=== PATIENT | male | born 1930 | race African-American/Black ===

== ENCOUNTER 2019-04-06 23:23 | Emergency (ER) | payer OTHER ==
[2019-04-07 00:20] LABS: ALT (SGPT) 7 U/L (8-55); AST (SGOT) 23 U/L (5-34); Albumin 3.4 g/dL (3.4-4.8); Alkaline Phosphatase 67 U/L (40-150); Anion Gap 22 mmol/L (10-20); BUN (Urea Nitrogen) 30 mg/dL (8.4-25.7); Bilirubin, Total 0.5 mg/dL (0.2-1.2); CK (CPK) 92 U/L (30-200); Calc. Creatinine Clearance 0 mL/min (70-130); Calcium 9.5 mg/dL (7.8-10.44); Carbon Dioxide 26 mmol/L (23-31); Chloride 94 mmol/L (98-107); Estimated GFR-MDRD 11; Globulin 4.5 g/dL (2.4-3.5); Glucose 100 mg/dL (83-110); Potassium 3.6 mmol/L (3.5-5.1); Protein, Total 7.9 g/dL (5.8-8.1); Sodium 138 mmol/L (136-145)
[2019-04-07 00:22] LABS: Band 41 % (5-11); Hemoglobin 9.5 g/dL (14.0-18.0); Hypochromia SLIGHT = 6-15 cells (100X) (0-5/hpf); Lymphocytes 3 % (21-51); MDiff Complete? YES; Mean Corpuscular HGB CONC 30.1 g/dL (32.0-36.0); Mean Corpuscular Volume 99.5 fL (78.0-98.0); Mean Platelet Volume 7.8 fL (7.4-10.4); Monocytes 1 % (0-10); Neutrophil 55 % (42-75); Platelet Count 248 thou/uL (130-400); Platelet Morphology Comment Appears Adequate; RBC Distribution Width 13.8 % (11.5-14.5); Red Blood Cell (RBC) Count 3.18 mill/uL (4.70-6.10); Reflex for Review?? NO; White Blood Cell (WBC) Count 14.2 thou/uL (4.8-10.8)
[2019-04-07 00:42] LABS: CKMB 3.7 ng/mL (0-6.6)
[2019-04-07] MEDS ORDERED: Morphine 4 MG/ML VIAL ONE (01:24)
--- NOTE | 2019-04-08 13:50 | CT ---
PRELIMINARY REPORT/[facility]/EMERGENTY AFTER-HOURS PROCEDURE CT Abdomen and Pelvis Without Contrast EXAM DATE/TIME: 04/06/2019 11:59 PM CLINICAL HISTORY: 89 years old, male; Abdominal pain; Generalized; Patient HX: 89/m PT presents with complaint of nause a, vomiting, and abd pain for the past week. Recently had peritoneal dialysis catheter removed as he has switched to hemodialysis TECHNIQUE: Imaging protocol: Axial computed tomography images of the abdomen and pelvis without contrast. Coronal reformatted images were created and reviewed. COMPARISON: No relevant prior studies available. FINDINGS: Pleural space: Small left pleural effusion with associated posterior atelectasis. Mediastinum: Small-sized hiatal hernia. Fluid within the visualized distal esophagus, likely reflux a nd/or dysmotility. ABDOMEN: Liver: Normal. Gallbladder and bile ducts: Normal Pancreas: Normal. Spleen: Splenic calcifications, compatible with prior granulomatous disease. Adrenals: Normal. Kidneys and ureters: 4.7 x 2.4 cm simple left posterior renal cyst. Stomach and bowel: Colonic diverticulosis. Multiple loops of moderately dilated, gas and fluid filled proximal and mid small bowel, with apparent transition to normal caliber small bowel within the righ t mid abdomen, where there is swirling appearance of small bowel and mesentery. Appendix: No evidence of appendicitis. PELVIS: Bladder: Unremarkable as visualized. Reproductive: Unremarkable as visualized. ABDOMEN and PELVIS: Intraperitoneal space: Normal. No free air. No significant fluid collection. Bones/joints: Changes of prior sternotomy. Soft tissues: Small fat and fluid containing right inguinal hernia, without acute complications. Vasculature: Atherosclerotic calcification of the visualized thoracic aorta. Atherosclerotic disease of the abdominal aorta and iliac arteries. Phleboliths within the pelvis. Lymph nodes: Normal. No enlarged lymph nodes. IMPRESSION: 1. Small left pleural effusion with associated posterior atelectasis. 2. Fluid within the visualized distal esophagus, likely reflux and/or dysmotility. 3. Multiple loops of moderately dilated, gas and fluid filled proximal and mid small bowel, with appa rent transition to normal caliber small bowel within the right mid abdomen, where there is swirling a ppearance of small bowel and mesentery. Findings most compatible with small bowel obstruction, possibly secondary to internal hernia. Thank you for allowing us to participate in the care of your patient. Dictated and Authenticated by: Liban Madison MD 04/07/2019 12:23 AM Central Time ([place] & [place]) FINAL REPORT CT ABDOMEN AND PELVIS WITHOUT IV CONTRAST: Multiple axial tomograms obtained through the abdomen and pelvis without IV enhancement. FINDINGS: There is fluid-filled distention of the stomach. There are fluid-filled dilated loops of proximal an d mid small bowel. Distal small bowel loops are decompressed. There is a mesenteric swirling sign i dentified as noted on preliminary report. The colon and distal small bowel are decompressed. Divert iculosis of the visualized colon. Adrenal glands and kidneys unremarkable with an exophytic cyst projecting from the inferior left kidn ey. IMPRESSION: Evidence of high-grade small bowel obstruction. I am in agreement with the preliminary report. POS: OFF
== END 2019-04-07 01:59 | disposition left against medical advice (07) ==
LOC: ERS 23:23
DX: K56.609 Unspecified intestinal obstruction, unspecified as to partial versus complete obstruction (principal); E78.5 Hyperlipidemia, unspecified; I12.0 Hypertensive chronic kidney disease with stage 5 chronic kidney disease or end stage renal disease; N18.6 End stage renal disease; Z79.899 Other long term (current) drug therapy
CPT/HCPCS: 74176; 80053; 82550; 82553; 83880; 84484; 85025; 93005; 94760; 96374; J2270

== ENCOUNTER 2020-10-06 06:41 | Observation (INO) | payer MEDICARE, OTHER ==
--- NOTE | 2020-10-06 07:36 | RAD ---
Portable frontal chest radiograph: 10/06/2020 COMPARISON: None HISTORY: Chest pain FINDINGS: The cardiac silhouette is enlarged. Midline sternotomy wires and mediastinal clips are pres ent. There is atherosclerotic calcification of the aortic arch. No pneumothorax, lobar consolidation, or alveolar edema. There is increased linear density within the medial left lung base. IMPRESSION: Prominent cardiac silhouette. Postoperative changes as above. Streaky linear density in the medial left lung base which could represent infiltrate, scar, and/or vo lume loss.
[2020-10-06] MEDS ORDERED: Cefepime 2 GM VIAL ONE (08:07)
[2020-10-06 08:42] LABS: Hemoglobin 11.4 g/dL (14.0-18.0); Mean Corpuscular HGB CONC 31.9 g/dL (32.0-36.0); Mean Corpuscular Hemoglobin 29.9 pg (27.0-31.0); Mean Corpuscular Volume 93.9 fL (78.0-98.0); Mean Platelet Volume 9.3 fL (7.4-10.4); Platelet Count 125 thou/uL (130-400); RBC Distribution Width 16.4 % (11.5-14.5); White Blood Cell (WBC) Count 5.4 thou/uL (4.8-10.8)
[2020-10-06 08:58] LABS: ALT (SGPT) 14 U/L (8-55); AST (SGOT) 24 U/L (5-34); Albumin 3.6 g/dL (3.4-4.8); Alkaline Phosphatase 89 U/L (40-110); Anion Gap 24 mmol/L (10-20); BUN (Urea Nitrogen) 87 mg/dL (8.4-25.7); Bilirubin, Total 0.6 mg/dL (0.2-1.2); CK (CPK) 75 U/L (30-200); Calc. Creatinine Clearance 0 mL/min (70-130); Calcium 9.4 mg/dL (7.8-10.44); Carbon Dioxide 22 mmol/L (23-31); Chloride 99 mmol/L (98-107); Estimated GFR-MDRD 6; Globulin 4.9 g/dL (2.4-3.5); Glucose 123 mg/dL (83-110); Lipase 61 U/L (8-78); Potassium 3.8 mmol/L (3.5-5.1); Protein, Total 8.5 g/dL (5.8-8.1); Sodium 141 mmol/L (136-145)
[2020-10-06 09:06] LABS: Band 7 % (5-11); Burr Cells SLIGHT = 2-5 cells (100X) (0-1/hpf); Lymphocytes 11 % (21-51); MDiff Complete? YES; Monocytes 13 % (0-10); Neutrophil 68 % (42-75); Platelet Morphology Comment Appears Decreased; Polychromasia SLIGHT = 2-3 cells (100X) (0-2/hpf); Reactive Lymphocytes 1 % (0-10)
[2020-10-06] MEDS ORDERED: Vancomycin 1 GM/200 ML BAG ONE (09:17)
[2020-10-06 09:19] LABS: CKMB 3.5 ng/mL (0-6.6)
[2020-10-06] MEDS ORDERED: Levofloxacin 500 mg/D5W 100 ml Premix Bag ONE (10:42)
[2020-10-06 11:44] LABS: HBSAg Index 0.18 S/CO (0-0.99); Hep B Surf Ag Non-Reactive S/CO (NonReactive)
--- NOTE | 2020-10-06 11:56 | CON ---
DATE OF CONSULTATION: REASON FOR CONSULTATION: End-stage renal disease, for maintenance hemodialysis. HISTORY OF PRESENTING ILLNESS: This is an 89-year-old gentleman, who presented to the hospital for increasing shortness of breath and chest pain. The patient denies any nausea or vomiting. PAST MEDICAL HISTORY: Significant for end-stage renal disease, hypertension, anemia, secondary hyperparathyroidism, history of CABG, history of AV fistula, and history of tunneled dialysis catheter. SOCIAL HISTORY: No alcohol or drug use. FAMILY HISTORY: Negative for ESRD. ALLERGIES: REVIEWED. MEDICATIONS: Home medications, list hospital. Hospital medications, list reviewed. REVIEW OF SYSTEMS: 15-point review of systems was performed, negative except for positives noted above. HEENT: Eyes intact, no diplopia. Ears: No hearing loss or earache. Nose: No discharge or bleeding. Chest: No cough or phlegm. Abdomen: No nausea or vomiting. Genitourinary: No hematuria. No Mcdonald catheter. Musculoskeletal: No low back pain. No joint swelling or pain. Neurological: No syncope. No seizures. Skin: No complaints of rash or itching. Psychiatric: No depression. Constitutional: No weight loss or loss of appetite. PHYSICAL EXAMINATION: GENERAL: The patient is awake and alert. VITAL SIGNS: Afebrile, pulse 75, breathing 16, and blood pressure was 130/70. HEENT: Head normocephalic and atraumatic. Eyes intact, no ulcers. Nose intact, no ulcers. Ears intact, no ulcers. Neck: Supple. No JVD. Chest: Symmetrical and clear. Cardiovascular: Shows S1 and S2, no rub, no murmur. Gastrointestinal: Abdomen is soft, bowel sounds positive. Extremities: Show no edema or ulcers. Skin: Shows no rash or petechiae. Musculoskeletal: Shows no joint swelling or stiffness. Genitourinary: Shows no Mcdonald or CVA tenderness. Neurologic: Motor intact. Cranial nerves intact. LABORATORY DATA: Reviewed. ASSESSMENT: Stage 6 chronic kidney disease with volume overload. Plan dialysis. Hypertension, stable. Anemia, stable. Medication based on GFR appropriate. Job ID: [id number]
[2020-10-06] MEDS ORDERED: Nitroglycerin 2% Ointment 1 INCH/1 GM Packet ONE (13:04)
--- NOTE | 2020-10-06 13:40 | PDOC.HHP ---
Hospitalist HPI - History of Present Illness History of Present Illness: ADMISSION DATE: 10/06/2020 TIME OF ASSESSMENT: 1300 PRIMARY CARE PHYSICIAN: Out of town, city call CHIEF COMPLAINT: Chest pain HPI: The patient is a 89-year-old male past medical history significant for end- stage renal disease on dialysis and NSTEMI who presents to the ER today for left upper chest pain. The patient was at dialysis in [place] for his regularly scheduled dialysis which he receives Tuesday, Tuesday, and Tuesday when he began to complain of left upper chest pain and scapular pain. He states that this is happened in the past and he sees a mortgage protection specialist for this. His mortgage protection specialist is in [place] but he cannot remember his name at this time. Patient does appear to be a poor historian. Patient describes today's chest pain as a tightness on the left upper side and goes into his scapula. It is not reproducible and it has resolved at this time. While talking he does have an increased work of breathing but he attributes this to needing dialysis. He states he did receive his Tuesday dialysis. Patient denies any fever, chills, myalgias, abdominal discomfort, contact with sick persons. ED COURSE: Vital signs: Blood pressure 143/83, pulse 94, respiratory rate 21, 96% on 1 L, temp 97.6 Today in the ER they completed lab work, EKG and a chest x-ray. He was given cefepime 2 g IV, vancomycin 1 g IV, Levaquin 500 mg IV, and nitro 0.5 inches transdermal. PAST MEDICAL HISTORY: Hyperlipidemia, hypertension, please with Tuesday dialysis, CAD, atrial fibrillation PAST SURGICAL HISTORY: CABG 3, dialysis shunt to left upper extremity SOCIAL HISTORY: Patient lives at home alone and is independent with all activities. He still drives himself to his doctor's appointment in [place] from [place]. He previously drank alcohol but no longer does. He denies smoking and drug use and history. FAMILY HISTORY: Unknown at this time ALLERGIES: No known drug allergies CURRENT MEDICATIONS: As reconciled by the ER Atorvastatin 40 mg Carvedilol 25 mg twice a day Clonidine 0.2 mg every 12 hours for systolic over 180 Gabapentin 300 mg Iron Pantoprazole 40 mg Renvela 800 mg Amitriptyline 25 mg Cymbalta 20 mg Folic acid 1 mg Hospitalist ROS - Review of Systems Cardiovascular: reports: chest pain, edema All other systems reviewed; all pertinent +/- noted in HPI/Subj - Exam General Appearance: NAD, awake alert ENT: normocephalic atraumatic ENT - other findings: poor dentition, hoarse voice Neck: JVD Heart: normal peripheral pulses, irregular Respiratory: no rales, wheezes Gastrointestinal: soft, non-tender, non-distended, normal bowel sounds Extremities: no edema Psychiatric: normal affect, normal behavior, A&O x 3 Hospitalist Results - Labs Result Diagrams: 10/06/20 07:47 10/06/20 07:47 Lab results: WBC 5.4 thou/uL (4.8-10.8) 10/06/20 07:47 Hgb 11.4 g/dL (14.0-18.0) L 10/06/20 07:47 Hct 35.7 % (42.0-52.0) L 10/06/20 07:47 MCV 93.9 fL (78.0-98.0) 10/06/20 07:47 Plt Count 125 thou/uL (130-400) L 10/06/20 07:47 Band Neuts % (Manual) 7 % (5-11) 10/06/20 07:47 Sodium 141 mmol/L (136-145) 10/06/20 07:47 Potassium 3.8 mmol/L (3.5-5.1) 10/06/20 07:47 Chloride 99 mmol/L (98-107) 10/06/20 07:47 Carbon Dioxide 22 mmol/L (23-31) L 10/06/20 07:47 BUN 87 mg/dL (8.4-25.7) H 10/06/20 07:47 Creatinine 10.45 mg/dL (0.7-1.3) H 10/06/20 07:47 Glucose 123 mg/dL (83-110) H 10/06/20 07:47 Calcium 9.4 mg/dL (7.8-10.44) 10/06/20 07:47 Total Bilirubin 0.6 mg/dL (0.2-1.2) 10/06/20 07:47 AST 24 U/L (5-34) 10/06/20 07:47 ALT 14 U/L (8-55) 10/06/20 07:47 Alkaline Phosphatase 89 U/L (40-110) 10/06/20 07:47 Creatine Kinase 75 U/L (30-200) 10/06/20 07:47 CK-MB (CK-2) 3.5 ng/mL (0-6.6) 10/06/20 07:47 Troponin I 0.131 ng/mL (< 0.028) H 10/06/20 07:47 B-Natriuretic Peptide 4057.6 pg/mL (0-100) H 10/06/20 07:47 Serum Total Protein 8.5 g/dL (5.8-8.1) H 10/06/20 07:47 Albumin 3.6 g/dL (3.4-4.8) 10/06/20 07:47 Lipase 61 U/L (8-78) 10/06/20 07:47 - EKG Interpretation EKG: AF 93 bpm - Radiology Interpretation Chest x-ray Status: image reviewed by me, report reviewed by me Additional Comment: FINDINGS: The cardiac silhouette is enlarged. Midline sternotomy wires and mediastinal clips are present. There is atherosclerotic calcification of the aortic arch. No pneumothorax, lobar consolidation, or alveolar edema. There is increased linear density within the medial left lung base. IMPRESSION: Prominent cardiac silhouette. Postoperative changes as above. Streaky linear density in the medial left lung base which could represent infiltrate, scar, and/or volume loss. Hospitalist H&P A/P - Problem (1) Chest pain Code(s): R07.9 - CHEST PAIN, UNSPECIFIED Status: Acute (2) Elevated troponin I level Code(s): R77.8 - OTHER SPECIFIED ABNORMALITIES OF PLASMA PROTEINS Status: Acute (3) ESRD (end stage renal disease) on dialysis Code(s): N18.6 - END STAGE RENAL DISEASE; Z99.2 - DEPENDENCE ON RENAL DIALYSIS Status: Chronic (4) HTN (hypertension) Code(s): I10 - ESSENTIAL (PRIMARY) HYPERTENSION Status: Chronic (5) Atrial fibrillation Code(s): I48.91 - UNSPECIFIED ATRIAL FIBRILLATION Status: Chronic - Plan Plan: #Chest pain Resolved at this time NSTEMI last month, troponin indeterminate this time and 0.131 Continue to trend troponin Monitor on telemetry #Possible pneumonia Received Levaquin, vancomycin, and cefepime in the ER Afebrile and chest pain has resolved at this time We will monitor for fever and recheck labs in a.m. to see if there is need to continue antibiotics #Stage chronic kidney disease on dialysis Missed dialysis today, nephrology has already seen patient and he received dialysis later this afternoon Patient states he received dialysis on his regular scheduled Tuesday #Atrial fibrillation, chronic Currently rate controlled Does not appear to be on anticoagulation, will request records from previous hospitalization Patient does have history of coughing up some blood and states he has an upcoming biopsy planned for his throat to hopefully determine why he is hoarse- will check previous records to see if anticoagulation was contraindicated due to those reasons #Hypertension, chronic We will restart patient's home medications Expect blood pressure to be slightly lower after today's dialysis CODE STATUS: Full Patient surrogate decision-maker is his daughter, Gisela Patient and care discussed with Dr. Almodovar
[2020-10-06 14:02] LABS: Troponin I 0.116 ng/mL (< 0.028)
[2020-10-06 14:24] LABS: INR-International Normal Ratio 1.3; Prothrombin Time 16.8 sec (12.0-14.7)
[2020-10-06 17:04] LABS: Troponin I 0.131 ng/mL (< 0.028)
[2020-10-06] MEDS ORDERED: Ondansetron ODT 4 MG TAB SL PRN (20:00)
[2020-10-06] MEDS ORDERED: Acetaminophen 325 MG TAB PO PRN (20:00)
[2020-10-06] MEDS ORDERED: Ondansetron PF 4 MG/2 ML Vial IVP PRN (20:00)
[2020-10-06] MEDS: Nitroglycerin 2% Ointment 1 INCH/1 GM Packet TOP SCH (21:31)
[2020-10-07 02:14] VITALS: BMI 18.6
[2020-10-07 05:15] LABS: Anion Gap 21 mmol/L (10-20); BUN (Urea Nitrogen) 43 mg/dL (8.4-25.7); Calc. Creatinine Clearance 6 mL/min (70-130); Carbon Dioxide 27 mmol/L (23-31); Chloride 94 mmol/L (98-107); Estimated GFR-MDRD 10; Glucose 98 mg/dL (83-110); Potassium 4.1 mmol/L (3.5-5.1); Sodium 138 mmol/L (136-145)
[2020-10-07 05:45] LABS: Band 1 % (5-11); Hemoglobin 10.6 g/dL (14.0-18.0); Lymphocytes 24 % (21-51); MDiff Complete? YES; Mean Corpuscular HGB CONC 29.7 g/dL (32.0-36.0); Mean Corpuscular Hemoglobin 27.4 pg (27.0-31.0); Mean Corpuscular Volume 92.3 fL (78.0-98.0); Mean Platelet Volume 9.7 fL (7.4-10.4); Monocytes 15 % (0-10); Neutrophil 60 % (42-75); Platelet Count 138 thou/uL (130-400); Platelet Morphology Comment Appears Adequate; RBC Distribution Width 16.6 % (11.5-14.5); Red Blood Cell (RBC) Count 3.88 mill/uL (4.70-6.10); White Blood Cell (WBC) Count 4.8 thou/uL (4.8-10.8)
[2020-10-07] MEDS: Nitroglycerin 2% Ointment 1 INCH/1 GM Packet TOP SCH (06:07)
[2020-10-07 08:31] VITALS: BP 132/59; TEMP 98.2
[2020-10-07] MEDS ORDERED: Non-Formulary Item 1 EACH (Diclofenac Sodium [Diclofenac Sodium 1% Gel] 100 GM Tube) TOP PRN (08:59)
[2020-10-07] MEDS ORDERED: Aspirin 81 mg Enteric Coated Tablet PO SCH (09:00)
[2020-10-07] MEDS ORDERED: Aspirin 325 mg Enteric Coated Tablet PO SCH (09:00)
[2020-10-07] MEDS ORDERED: Non-Formulary Item 1 EACH (Sevelamer Hcl [Sevelamer Hcl] 800 MG Tablet) PO SCH (09:00)
[2020-10-07] MEDS ORDERED: Calcium Carbonate 500 MG ChewTAB PO SCH ×2 (09:00)
[2020-10-07] MEDS ORDERED: Atorvastatin Calcium 10 MG TAB PO SCH (09:00)
[2020-10-07] MEDS ORDERED: Diclofenac 1% 100 GM GEL TP PRN (09:08)
--- NOTE | 2020-10-07 11:35 | PRG ---
DATE OF SERVICE: 10/07/2020 SUBJECTIVE: An 89-year-old gentleman, being seen for end-stage renal disease. The patient denied nausea, vomiting, or chest pain. OBJECTIVE: GENERAL: The patient is awake and alert. VITAL SIGNS: Afebrile, pulse 75, breathing at 16, and blood pressure 132/59. HEENT: Head normocephalic and atraumatic. Eyes intact, no ulcers. Nose intact, no ulcers. Ears intact, no ulcers. NECK: Supple. No JVD. CHEST: Symmetrical and clear. CARDIOVASCULAR: Shows S1 and S2, no rub, no murmur. GASTROINTESTINAL: Abdomen is soft, bowel sounds positive. EXTREMITIES: Show no edema or ulcers. SKIN: Shows no rash or petechiae. MUSCULOSKELETAL: Shows no joint swelling or stiffness. GENITOURINARY: Shows no Mcdonald or CVA tenderness. NEUROLOGIC: Motor intact. Cranial nerves intact. LABORATORY DATA: Reviewed. ASSESSMENT AND PLAN: 1. Stage 6 chronic kidney disease, stable. 2. Hypertension, stable. 3. Anemia, stable. Medication based on GFR appropriate. Job ID: [id number]
[2020-10-07] MEDS ORDERED: Sevelamer Carbonate 800 MG TAB PO SCH (12:00)
[2020-10-07 14:17] LABS: SARS-CoV-2 MS2 Positive; SARS-CoV-2 N Gene Negative; SARS-CoV-2 S Gene Negative; SARS-CoV-2 by NAA Not Detected (NotDetected); SARS-CoV-2 orf1ab Negative
[2020-10-07] MEDS ORDERED: FLU VACC QS2020-21(65YR UP)/PF 240 MCG/0.7 ML SYRINGE IM ONE (21:00)
--- NOTE | 2020-10-08 02:35 | DIS ---
DATE OF ADMISSION: 10/06/2020 DATE OF DISCHARGE: 10/07/2020 Actually, patient left against medical advice. DISCHARGE DIAGNOSES: As of the followin. Chest pain. 2. Two end-stage renal disease, on dialysis. 3. Elevated troponins in the indeterminate levels, most likely demand related. 4. Hypertension. 5. Atrial fibrillation. HOSPITAL COURSE: Patient is an 89-year-old male, who is very well connected with the [facility], who presented to the hospital after having some chest pain. When I spoke with the patient, patient stated that he has been having this chest pain on and off for many months to years. He follows up with Cardiology at the [facility]. However, he is unable to really tell me what testing they have done. When I asked him to sign the consent for release of information from the [facility], patient refused, stated that he did not want to do so and wanted to leave against medical advice. I did explain to him the risk of given his ongoing chest pain, history of heart disease, patient stated that he will follow up with his heart doctor and he actually wanted to go to the [facility] rather than coming here. I do not have any previous records of this patient. Patient's daughter also was called and at this time, patient left against medical advice. Patient's medications will be resumed. PHYSICAL EXAMINATION: VITAL SIGNS: His vital signs on discharge; temperature 98.2, 75, 16, 98% on room air, and 132/59. GENERAL: He is awake, alert, and oriented x3. Does not appear in distress. CV: S1, S2 present. No murmurs, rubs, or gallops. Follow up with Primary and in Cardiology. Actually, he left against medical advice. Job ID: [id number]
--- NOTE | 2020-10-11 13:42 | EKG ---
Test Reason : Blood Pressure : / mmHG Vent. Rate : 093 BPM Atrial Rate : 046 BPM P-R Int : 000 ms QRS Dur : 146 ms QT Int : 414 ms P-R-T Axes : 000 -38 128 degrees QTc Int : 514 ms Atrial fibrillation Left axis deviation Left bundle branch block Abnormal ECG Confirmed by DEANNA ARGUETA DO ([id number]), editor in chief LEIGHA CRANE ([id number] on 10/11/2020 1:41:59 PM Referred By: Confirmed By:DEANNA ARGUETA DO
== END 2020-10-07 11:40 | disposition home or self-care (01) ==
LOC: ERS 06:41 → ERHOLD 13:03 → 2NO 20:00
PROVIDERS: ADMIT Internal Medicine; ATTEND Internal Medicine
DX: R07.9 Chest pain, unspecified (principal); I12.0 Hypertensive chronic kidney disease with stage 5 chronic kidney disease or end stage renal disease; N18.6 End stage renal disease; N25.81 Secondary hyperparathyroidism of renal origin; D63.1 Anemia in chronic kidney disease; I48.20 Chronic atrial fibrillation, unspecified; I21.4 Non-ST elevation (NSTEMI) myocardial infarction; E78.5 Hyperlipidemia, unspecified; I25.10 Atherosclerotic heart disease of native coronary artery without angina pectoris; Z20.828 Contact with and (suspected) exposure to other viral communicable diseases; Z79.899 Other long term (current) drug therapy; Z53.29 Procedure and treatment not carried out because of patient's decision for other reasons; Z99.2 Dependence on renal dialysis
CPT/HCPCS: 36415; 71045; 80048; 80053; 82550; 82553; 83690; 83880; 84484; 85025; 85610; 85730; 87040; 87340; 87635; 93005; 94760; 96365; 96367; G0378; J0692; J1956; J3370; U0003